=== PATIENT | female | born 1960 | race Caucasian/White ===

== ENCOUNTER 2016-09-23 10:49 | Emergency (ER) | payer OTHER ==
[~2016-09-23] VITALS: Ht 157.5 cm; Wt 72.6 kg
--- NOTE | ~2016-09-23 | EKG ---
[address] [address] ELECTROCARDIOGRAM REPORT Name: OZIELMAGDA TALHA Room #: DEP [facility] [id number] Admission: 09/23/16 Attend Phys: Discharge: 09/23/16 Date of : 62 Report #: [id number] THIS REPORT FOR: //name// [facility] ED Test Date: 2016-09-23 Test Time: 10:51:15 Pat Name: MAGDA LUDWIG Department: Room: Gender: F Director [employer] Services: virgil : 1960 Requested By: Benny Eugene Order Number: [id number] MD: Vasyl Phillips Measurements Intervals [place] Rate: 75 P: -2 UT: 159 QRS: -6 QRSD: 82 T: 2 QT: 380 QTc: 425 Interpretive Statements Sinus rhythm Low voltage, precordial leads No previous ECG available for comparison Electronically Signed On 09-24-2016 16:56:34 CDT by Vasyl Phillips [email or web address] <ELECTRONICALLY SIGNED> By: Vasyl Phillips MD 09/24/16 1656 1051 1051 MD ROSI Bey
[~2016-09-23 10:49] MED LIST: CELEXA10 MG PO; CIPRO500 MG PO; COLACE100 MG PO; FLAGYL500 MG PO; LEVOTHYROXINE0.05 MG PO; NABUMETONE 750750 M1 PO; PHENAZOPYRIDIN200 M2 PO; TOPROL XL25 MG PO; TYLENOL325 MG PO
[2016-09-23 11:17] LABS: ABSOLUTE NEUTROPHILS 4.4 thou/uL (1.4-8.2); BASOPHILS 0.7 % (0.0-2.0); EOSINOPHILS 0.7 % (0.0-3.0); HEMATOCRIT 39.6 % (37.0-47.0); HEMOGLOBIN 13.7 gm/dL (12.0-15.0); LYMPHOCYTES 27.9 % (24.0-44.0); MCH 32.5 pg (26.0-34.0); MCHC 34.6 g/dL (28.0-37.0); MONOCYTES 9.3 % (1.0-8.0); PLATELET COUNT 262 thou/uL (150-400); POLYS 61.4 % (36.0-66.0); RBC 4.21 mil/uL (4.20-5.00); RDW 13.2 % (10.5-14.5); WBC 7.1 thou/uL (4.0-11.0)
[2016-09-23 11:18] LABS: MANUAL DIFF NO
[2016-09-23 11:27] LABS: ANION GAP 5 mmol/L (7-16); BUN 10 mg/dL (7-18); CALCIUM 8.8 mg/dL (8.5-10.1); CHLORIDE 106 mmol/L (98-107); CO2 28 mmol/L (21-32); CREATININE 0.7 mg/dL (0.6-1.0); GLUCOSE 108 mg/dL (74-106); SODIUM 139 mmol/L (136-145)
[2016-09-23 11:39] LABS: NT-PRO BRAIN NAT PEPTIDE 18 pg/mL (<300); TROPONIN-I < 0.04 ng/mL (<0.04-0.07)
[2016-09-23] MEDS ORDERED: IBUPROFEN 600600 M1 PO (12:31)
== END 2016-09-23 12:32 | disposition home or self-care (01) ==
LOC: ER 10:49
PROVIDERS: Emergency Medicine
DX: R07.89 Other chest pain (principal); E03.9 Hypothyroidism, unspecified; I10 Essential (primary) hypertension; F10.99 Alcohol use, unspecified with unspecified alcohol-induced disorder; Z88.0 Allergy status to penicillin